=== PATIENT | male | born 1950 | race African-American/Black ===

== ENCOUNTER 2019-08-11 16:13 | Inpatient (IN) | payer OTHER ==
[~2019-08-11] VITALS: Ht 182.9 cm; Wt 48.1 kg
[2019-08-11] MEDS ORDERED: MORPHINE SULFATE 20 MG/ML CONC SOLUTION. SL PRN (16:30)
[2019-08-11] MEDS ORDERED: fentaNYL PF VIAL 100 MCG/2 ML VIAL IVP PRN (16:30)
[2019-08-11] MEDS ORDERED: ACETAMINOPHEN 650 MG SUPP.RECT. PR PRN (16:30)
[2019-08-11] MEDS ORDERED: MORPHINE SULFATE 4 MG/ML VIAL. IV PRN (16:30)
[2019-08-11] MEDS ORDERED: BISACODYL 10 MG SUPP.RECT. PR PRN (16:30)
[2019-08-11] MEDS ORDERED: LORazepam INTENSOL 2 MG/ML ORAL.CONC SL PRN (16:30)
[2019-08-11 18:50] VITALS: BP 88/44
[2019-08-12 08:00] VITALS: BP 79/36
--- NOTE | 2019-08-12 09:32 | PDOC1 ---
History and Physical Date of Admission Date of Admission DATE: 08/12/19 TIME: 09:32 Identification/Chief Complaint Chief Complaint CC history of diabetes, been under control history of tobacco abuse, hypertension and substance abuse including methamphetamine and crack cocaine He has been staying with his son in a hotel room . He has lost about 40 pounds suspec 2/2 to poor po intake He was brought to [facility] Emergency Room on the evening of 08/05 secondary to being found unresponsive. He was bagged. He had a blood sugar of 444. Blood pressure initially was elevated, but then dropped into the 70s/40s and he was placed on Levophed and was intubated. BUN significantly elevated, Na critically high at presentation . No UOP , correa was placed in the ER Past Medical History Past Medical History PAST MEDICAL HISTORY: According to the family is positive for diabetes and hypertension. Past Surgical History Past Surgical History PAST SURGICAL HISTORY: Positive for hernia repair. Family History Family History FAMILY HISTORY: Positive for diabetes. Social History Social History SOCIAL HISTORY: Again, positive for tobacco, history of substance abuse, are no pets at the house. 1 pack per day (unclear degree) ALCOHOL: other (Unknown) Drugs: Other (Unknown) Past Medical History Cardiovascular: HTN, Hyperlipidemia Hepatobiliary: Cirrhosis Psych: Addictions, Depression Musculoskeletal: Osteoarthritis Rheumatologic: No pertinent hx Family History Family History: Alcohol Abuse, High Cholestrol, Hypertension Social History Smoke: <1 pack per day ALCOHOL: occassional Drugs: Cocaine, Crystal meth, Other Current Medications Current Medications Current Medications Morphine Sulfate (Morphine Sulfate) 2 mg PRN Q1HR PRN IV MILD-MODERATE PAIN; Start 08/11/19 at 16:30 Morphine Sulfate (Morphine Sulfate) 4 mg PRN Q1HR PRN IV SEVERE PAIN; Start 08/11/19 at 16:30 Fentanyl Citrate (Fentanyl 2ml Vial) 100 mcg PRN Q2HR PRN IVP PAIN- 2ND CHOICE; Start 08/11/19 at 16:30 Morphine Sulfate (Roxanol Conc) 20 mg PRN Q3HRS PRN SL PAIN; Start 08/11/19 at 16:30 Acetaminophen (Tylenol Supp) 650 mg PRN Q6HRS PRN [place] MILD PAIN / TEMP; Start 08/11/19 at 16:30 Bisacodyl (Dulcolax Supp) 10 mg PRN DAILY PRN [place] CONSTIPATION; Start 08/11/19 at 16:30 Lorazepam (Ativan Intensol) 2 mg PRN Q1HR PRN SL ANXIETY / AGITATION; Start 08/11/19 at 16:30 Allergies Allergies: Coded Allergies: No Known Drug Allergies (Unverified , 08/07/19) ROS Review of System UNABLE TO COOPERATE Gastrointestinal: No Nausea, No Vomiting, No Abdominal Pain, No Diarrhea, No Constipation, No Melena, No Hematochezia, No Other Physical Exam General: Cooperative, mild distress Lungs: Other (DIMINISHED) Heart: RRR Breasts: Not examined Abdomen: Soft, No tenderness Rectal Exam: not examined PELVIC: Examination not indicated Extremities: No cyanosis Neuro: Cranial nerves 3-12 NL Vitals Vitals Vital Signs Date Time Temp Pulse Resp B/P (MAP) Pulse Ox O2 Delivery O2 Flow Rate FiO2 08/12/19 08:00 96.8 99 12 79/36 (50) 98 Room Air 96.8 08/11/19 20:00 2.0 VTE Prophylaxis Ordered VTE Prophylaxis Devices: No VTE Pharmacological Prophylaxi: No Assessment/Plan Assessment/Plan IMPRESSION Respiratory failure, end stage lung disease GI bleed Dementia GNR sepsis - POA 08/05 - LORI Critical hypotension Weight loss 40 lbs since Mar per family from "malnutrition" DM H/o substance abuse Hypernatremia Elevated TSH 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
[2019-08-12] MEDS: MORPHINE SULFATE 2 MG/ML VIAL. IV PRN ×2 (13:31→20:32)
[2019-08-12 20:06] VITALS: BP 80/39
[2019-08-13 07:00] VITALS: BP 87/44
--- NOTE | 2019-08-13 10:37 | PDOC ---
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 Medications Current Medications Morphine Sulfate (Morphine Sulfate) 2 mg PRN Q1HR PRN IV MILD-MODERATE PAIN Last administered on 08/12/19at 20:32; Start 08/11/19 at 16:30 Morphine Sulfate (Morphine Sulfate) 4 mg PRN Q1HR PRN IV SEVERE PAIN; Start 08/11/19 at 16:30 Fentanyl Citrate (Fentanyl 2ml Vial) 100 mcg PRN Q2HR PRN IVP PAIN- 2ND CHOICE; Start 08/11/19 at 16:30 Morphine Sulfate (Roxanol Conc) 20 mg PRN Q3HRS PRN SL PAIN; Start 08/11/19 at 16:30 Acetaminophen (Tylenol Supp) 650 mg PRN Q6HRS PRN [place] MILD PAIN / TEMP; Start 08/11/19 at 16:30 Bisacodyl (Dulcolax Supp) 10 mg PRN DAILY PRN [place] CONSTIPATION; Start 08/11/19 at 16:30 Lorazepam (Ativan Intensol) 2 mg PRN Q1HR PRN SL ANXIETY / AGITATION; Start 08/11/19 at 16:30 Vitals/I & O Vital Sign - Last 24 Hours 08/12/19 08/12/19 08/12/19 08/12/19 13:31 14:10 20:00 20:06 Temp 96.7 96.7 Pulse 93 Resp 12 B/P (MAP) 80/39 (53) Pulse Ox 98 O2 Delivery Room Air Nasal Cannula Nasal Cannula Nasal Cannula O2 Flow Rate 2.0 2.0 2.0 08/12/19 08/12/19 08/13/19 08/13/19 20:32 21:10 03:40 07:00 Temp 97.2 97.2 Pulse 88 Resp 14 6 6 B/P (MAP) 87/44 (58) Pulse Ox 98 98 100 O2 Delivery Nasal Cannula Nasal Cannula Nasal Cannula Room Air O2 Flow Rate 2.0 2.0 08/13/19 08:00 O2 Delivery Nasal Cannula O2 Flow Rate 2.0 MARY HALL MD Aug 13, 2019 10:37
[2019-08-13 19:00] VITALS: BP 91/46
[2019-08-14 08:00] VITALS: BP 112/59
--- NOTE | 2019-08-14 11:11 | PDOC ---
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 Medications Current Medications Morphine Sulfate (Morphine Sulfate) 2 mg PRN Q1HR PRN IV MILD-MODERATE PAIN Last administered on 08/12/19at 20:32; Start 08/11/19 at 16:30 Morphine Sulfate (Morphine Sulfate) 4 mg PRN Q1HR PRN IV SEVERE PAIN; Start 08/11/19 at 16:30 Fentanyl Citrate (Fentanyl 2ml Vial) 100 mcg PRN Q2HR PRN IVP PAIN- 2ND CHOICE; Start 08/11/19 at 16:30 Morphine Sulfate (Roxanol Conc) 20 mg PRN Q3HRS PRN SL PAIN; Start 08/11/19 at 16:30 Acetaminophen (Tylenol Supp) 650 mg PRN Q6HRS PRN [place] MILD PAIN / TEMP; Start 08/11/19 at 16:30 Bisacodyl (Dulcolax Supp) 10 mg PRN DAILY PRN [place] CONSTIPATION; Start 08/11/19 at 16:30 Lorazepam (Ativan Intensol) 2 mg PRN Q1HR PRN SL ANXIETY / AGITATION; Start 08/11/19 at 16:30 Vitals/I & O Vital Sign - Last 24 Hours 08/13/19 08/13/19 08/13/19 08/14/19 15:00 19:00 21:55 07:45 Pulse 87 Resp 4 4 B/P (MAP) 91/46 (61) Pulse Ox 100 O2 Delivery Nasal Cannula Nasal Cannula O2 Flow Rate 2.0 2.0 08/14/19 08:00 Temp 97.6 97.6 Pulse 89 Resp 4 B/P (MAP) 112/59 (76) Pulse Ox 98 O2 Delivery Nasal Cannula O2 Flow Rate 2.0 Intake and Output 08/13/19 08/13/19 08/14/19 15:00 23:00 07:00 Intake Total 0 ml Output Total 0 ml 0 ml Balance 0 ml 0 ml MARY HALL MD Aug 14, 2019 11:11
[2019-08-14] MEDS: MORPHINE SULFATE 2 MG/ML VIAL. IV PRN ×2 (11:15→18:00)
[2019-08-14 19:00] VITALS: BP 98/53
[2019-08-15] MEDS: MORPHINE SULFATE 2 MG/ML VIAL. IV PRN (05:50)
--- NOTE | 2019-08-15 06:59 | NUR ---
RN went in to check Mr. Small for 0630 rounds and found pt not breathing. Had two other nurses check breathing and vitals and no response. Pronounced TOD at 0650. Notified hospice nurse at 0655. JAYDON
--- NOTE | 2019-08-15 11:36 | NUR ---
Family notified of passing by night nurse. KJ Lennon from [facility], spoke with pt's family. Pt was taken to the [facility] [place] at approx 1015 by [facility] RN and [facility] STRIPER.
--- NOTE | 2019-08-15 13:20 | PDOC3 ---
Discharge Summary Visit Information Date of Admission: Aug 11, 2019 Date of Discharge: Aug 15, 2019 Final Diagnosis Acute Hypoxic Resp Failure GI bleed Sepsis Brief Hospital Course Allergies Allergies Coded Allergies Type Severity Reaction Last Updated Verified No Known Drug Allergies 08/07/19 No Vital Signs Vital Signs Date Time Temp Pulse Resp B/P (MAP) Pulse Ox O2 Delivery O2 Flow Rate FiO2 08/15/19 05:50 100 Nasal Cannula 2.0 08/14/19 19:00 97.7 98 10 98/53 (68) 97.7 exam not performed. patient . Brief Hospital Course 69 year old with history of diabetes, been under control history of tobacco abuse, hypertension and substance abuse including methamphetamine and crack cocaine. He has been staying with his son in a hotel room . He has lost about 40 pounds suspec 2/ to poor po intake. He was brought to [facility] Emergency Room on the evening of 08/05 secondary to being found unresponsive. He was bagged. He had a blood sugar of 444. Blood pressure initially was elevated, but then dropped into the 70s/40s and he was placed on Levophed and was intubated. BUN significantly elevated, Na critically high at presentation . No UOP , correa was placed in the ER. patient eventually extubated. plan for was comfort measures given end stage lung dz. patient on 08/14/19. family at bedside and consoled. Discharge Information Condition at Discharge: / Disposition/Orders: FADY ACNNON MD Aug 15, 2019 13:20
== END 2019-08-15 06:50 | disposition expired | DRG 871 ==
LOC: 5 SOUTH 16:13
PROVIDERS: ADMIT Family Medicine; ATTEND Family Medicine
DX: A41.50 Gram-negative sepsis, unspecified (principal); J96.01 Acute respiratory failure with hypoxia; E46 Unspecified protein-calorie malnutrition; E87.0 Hyperosmolality and hypernatremia; K92.2 Gastrointestinal hemorrhage, unspecified; N17.9 Acute kidney failure, unspecified; Z68.1 Body mass index [BMI] 19.9 or less, adult; E11.9 Type 2 diabetes mellitus without complications; E78.5 Hyperlipidemia, unspecified; F03.90 Unspecified dementia, unspecified severity, without behavioral disturbance, psychotic disturbance, mood disturbance, and anxiety; M19.90 Unspecified osteoarthritis, unspecified site; F32.9 Major depressive disorder, single episode, unspecified; F17.210 Nicotine dependence, cigarettes, uncomplicated; I10 Essential (primary) hypertension; K74.60 Unspecified cirrhosis of liver; Z51.5 Encounter for palliative care; Z82.49 Family history of ischemic heart disease and other diseases of the circulatory system; Z86.73 Personal history of transient ischemic attack (TIA), and cerebral infarction without residual deficits; Z83.3 Family history of diabetes mellitus
CPT/HCPCS: J2270; G0378